=== PATIENT | male | born 1980 | race Two or more races ===

== ENCOUNTER 2023-02-05 16:34 | Outpatient (CLI) | payer OTHER | END 2023-02-05 16:51 | disposition home or self-care (01) | LOC: TOM 16:34 | PROVIDERS: ATTEND Physical Medicine & Rehabilitation Sports Medicine | DX: K43.0 Incisional hernia with obstruction, without gangrene (principal); K40.90 Unilateral inguinal hernia, without obstruction or gangrene, not specified as recurrent; R10.9 Unspecified abdominal pain ==